=== PATIENT | male | born 1955 | race Caucasian/White ===

== ENCOUNTER 2019-08-31 11:42 | Emergency (ER) | payer OTHER, MEDICARE ==
[~2019-08-31] VITALS: Ht 190.5 cm; Wt 136.0 kg
[2019-08-31 12:47] LABS: HEMATOCRIT 44.4 % (39.0-50.0); HEMOGLOBIN 14.2 g/dl (14.0-18.0); IMMATURE GRANULOCYTES 0.5 % (0.0-5.0); MEAN CELL VOLUME 94.5 fL CALC (80.0-100.0); MEAN CORPUSCULAR HGB 30.2 pG CALC (26.0-32.0); NEUT# 3.93 thou/uL (1.82-7.42); RED BLOOD COUNT 4.7 mill/uL (4.70-6.10); RED CELL DISTRI WIDTH 13.1 % (11.5-15.5)
[2019-08-31 13:11] LABS: URINE BILIRUBIN - DIPSTICK NEGATIVE (NEGATIVE); URINE BLOOD DIPSTICK NEGATIVE (NEGATIVE); URINE COLOR YELLOW; URINE GLUCOSE - DIPSTICK NEGATIVE (NEGATIVE); URINE KETONE NEGATIVE (NEGATIVE); URINE LEUK ESTERASE NEGATIVE (NEGATIVE); URINE NITRITE - DIPSTICK NEGATIVE (Negative); URINE PH 6.5 (4.5-8.0); URINE PROTEIN - DIPSTICK NEGATIVE (NEG-TRACE); URINE SPECIFIC GRAVITY <=1.005; URINE UROBILINOGEN - DIPSTICK 0.2 E.U./dL (0.2)
[2019-08-31 13:18] LABS: ALBUMIN 4.6 g/dL (3.2-5.0); ALKALINE PHOSPHATASE 72 u/l (38-126); AMYLASE 51 u/l (30-110); ANION GAP 16 (6-22 (CALC)); BILIRUBIN, TOTAL 1.3 mg/dL (0.0-1.4); BUN 14 mg/dL (8-23); BUN/CREATININE RATIO 16 (12-20 (CALC)); CARBON DIOXIDE 24 mmol/l (22-30); CHLORIDE 104 mmol/l (95-108); CREATININE 0.9 mg/dL (0.7-1.3); GFR > 60 ML/MIN (>=60 (CALC)); GFR FOR AFR.AMER. > 60 ML/MIN (>=60 (CALC)); LIPASE 67 u/l (23-300); SGOT/AST 41 u/l (19-48); SODIUM 138 mmol/l (137-146); TOTAL PROTEIN 8.1 g/dL (6.3-8.2)
[2019-08-31 13:19] LABS: POTASSIUM 5.5 mmol/l (3.5-5.1)
[2019-08-31 13:30] LABS: MYOGLOBIN 62 ng/mL (0 - 121)
[2019-08-31] MEDS ORDERED: ANTIVERT PO (13:45)
[2019-08-31] MEDS ORDERED: ONDANSETRON4 MG PO (13:45)
[2019-08-31 14:10] VITALS: BP 153/93
== END 2019-08-31 14:10 | disposition home or self-care (01) | DRG 149 ==
LOC: ED 11:42
PROVIDERS: Emergency Medicine
DX: R42 Dizziness and giddiness (principal)

== ENCOUNTER 2020-09-25 16:51 | Emergency (ER) | payer OTHER, MEDICARE ==
[~2020-09-25] VITALS: Ht 190.5 cm; Wt 155.0 kg
[~2020-09-25 16:51] MED LIST: ANTIVERT PO; ONDANSETRON4 MG PO
[2020-09-25] MEDS ORDERED: ATORVASTATIN CA20 MG PO (17:48)
[2020-09-25] MEDS ORDERED: DULOXETINE HCL20 MG PO (17:51)
[2020-09-25] MEDS ORDERED: BUPROPION HCL150 M1 PO (17:52)
[2020-09-25] MEDS ORDERED: LISINOPRIL10 MG PO (17:52)
[2020-09-25] MEDS ORDERED: HYDROCO/APAP1 TA9 PO (18:10)
[2020-09-25 18:26] VITALS: BP 127/93
== END 2020-09-25 18:26 | disposition home or self-care (01) | DRG 605 ==
LOC: ED 16:51
DX: S20.212A Contusion of left front wall of thorax, initial encounter (principal); S51.812A Laceration without foreign body of left forearm, initial encounter; S80.212A Abrasion, left knee, initial encounter; I10 Essential (primary) hypertension; J44.9 Chronic obstructive pulmonary disease, unspecified; F41.9 Anxiety disorder, unspecified; F32.9 Major depressive disorder, single episode, unspecified; V86.99XA Unspecified occupant of other special all-terrain or other off-road motor vehicle injured in nontraffic accident, initial encounter; Y92.39 Other specified sports and athletic area as the place of occurrence of the external cause; Y99.0 Civilian activity done for income or pay

== ENCOUNTER 2023-05-20 12:19 | Emergency (ER) | payer OTHER, MEDICARE ==
[~2023-05-20] VITALS: Ht 190.5 cm; Wt 120.2 kg
[~2023-05-20 12:19] MED LIST changes: +ATORVASTATIN CA20 MG PO; +BUPROPION HCL150 M1 PO; +DULOXETINE HCL20 MG PO; +HYDROCO/APAP1 TA9 PO; +LISINOPRIL10 MG PO
[2023-05-20 12:26] VITALS: BP 133/85
[2023-05-20 12:31] VITALS: BP 133/86
[2023-05-20 13:15] VITALS: BP 133/86
== END 2023-05-20 13:20 | disposition home or self-care (01) | DRG 921 ==
LOC: ED 12:19
PROC: 0HQGXZZ Repair Left Hand Skin, External Approach (ICD-10-PCS; principal; 2023-05-20)
DX: L76.82 Other postprocedural complications of skin and subcutaneous tissue (principal); I10 Essential (primary) hypertension; J44.9 Chronic obstructive pulmonary disease, unspecified; F41.9 Anxiety disorder, unspecified; F32.A Depression, unspecified; Y83.8 Other surgical procedures as the cause of abnormal reaction of the patient, or of later complication, without mention of misadventure at the time of the procedure

== ENCOUNTER 2023-10-30 17:04 | Observation (INO) | payer OTHER, MEDICARE ==
[2023-10-30] VITALS (11 sets, daily range): BP systolic 110–168; BP diastolic 70–101
[~2023-10-30] VITALS: Ht 190.5 cm; Wt 127.6 kg
[2023-10-30 17:21] LABS: BASO% 0.5 % (0-3); HEMATOCRIT 42.4 % (39.0-50.0); HEMOGLOBIN 14.1 g/dl (14.0-18.0); IMMATURE GRANULOCYTES 0.2 % (0.0-5.0); LYMPH% 18.9 % (15-41); MEAN CORPUSCULAR HGB 31.3 pG CALC (26.0-32.0); MEAN CORPUSCULAR HGB CONC 33.3 g/dL CAL (32.0-36.0); MONO% 5.7 % (2-13); NEUT# 5.97 thou/uL (1.82-7.42); NEUT% 70.7 % (42-76); RED BLOOD COUNT 4.51 mill/uL (4.70-6.10); RED CELL DISTRI WIDTH 12.9 % (11.5-15.5)
[2023-10-30 17:37] LABS: ALBUMIN 4.5 g/dL (3.2-5.0); ALKALINE PHOSPHATASE 65 u/l (38-126); ANION GAP 11 (6-22 (CALC)); BILIRUBIN, TOTAL 1.7 mg/dL (0.2-1.3); BUN 12 mg/dL (8-23); BUN/CREATININE RATIO 14 (12-20 (CALC)); CARBON DIOXIDE 25 mmol/l (22-30); CHLORIDE 107 mmol/l (95-108); CREATININE 0.9 mg/dL (0.7-1.3); GFR FOR AFR.AMER. > 60 ML/MIN (>=60 (CALC)); GFR OTHER RACES > 60 ML/MIN (>=60 (CALC)); SGOT/AST 37 u/l (19-48); SODIUM 139 mmol/l (137-146); TOTAL PROTEIN 7.8 g/dL (6.3-8.2)
[2023-10-30 17:38] LABS: POTASSIUM 4.1 mmol/l (3.5-5.1)
[2023-10-30 19:19] LABS: URINE BILIRUBIN - DIPSTICK Negative (NEGATIVE); URINE BLOOD DIPSTICK Negative (NEGATIVE); URINE GLUCOSE - DIPSTICK Negative (NEGATIVE); URINE KETONE Negative (NEGATIVE); URINE LEUK ESTERASE Negative (NEGATIVE); URINE NITRITE - DIPSTICK Negative (Negative); URINE PROTEIN - DIPSTICK Negative (NEG-TRACE)
[2023-10-30 19:20] LABS: URINE COLOR Yellow
[2023-10-31 03:02] VITALS: BP 133/81
[2023-10-31 03:22] LABS: CHOLESTEROL HDL RATIO 3.1 (<4.4 (CALC)); MAGNESIUM 2.1 mg/dL (1.6-2.3)
[2023-10-31 06:58] VITALS: BP 115/61
[2023-10-31 07:19] VITALS: BP 115/61
== END 2023-10-31 11:17 | disposition home or self-care (01) | DRG 313 ==
LOC: ED 17:04 → ED-I 20:01 → ED 20:02 → MS2 20:03
PROVIDERS: Nurse Practitioner; ADMIT Internal Medicine; ATTEND Internal Medicine
DX: R07.9 Chest pain, unspecified (principal); I10 Essential (primary) hypertension; J44.9 Chronic obstructive pulmonary disease, unspecified; F41.9 Anxiety disorder, unspecified; F32.A Depression, unspecified; E78.5 Hyperlipidemia, unspecified; Z86.79 Personal history of other diseases of the circulatory system
CPT/HCPCS: J1650